=== PATIENT | male | born 1980 | race Caucasian/White ===

== ENCOUNTER 2017-11-02 08:00 | Emergency (ER) | payer SELFPAY ==
[2017-11-02] MEDS ORDERED: IBUPROFEN 800 MG TABLET PO ONE (08:19)
--- NOTE | 2017-11-02 08:42 | ER Document Report ---
ED General - General Chief Complaint: Hand Injury Stated Complaint: RIGHT HAND INJURY Time Seen by Provider: 11/02/17 08:12 TRAVEL OUTSIDE OF THE [place] IN LAST 30 DAYS: No - HPI Patient complains to provider of: Fifth digit right pain Notes: Patient coming in today he was punching a punching bag at home did not wrap his hands when he punched a punching bag having pain at the right fifth digit. Patient denies any other injuries denies any wrist pain or elbow pain. Patient resting comfortably there is swelling to the area. - Related Data Allergies/Adverse Reactions: No Known Allergies Allergy (Verified 11/02/17 08:02) Past Medical History - Social History Smoking Status: Unknown if Ever Smoked Chew tobacco use (# tins/day): No Frequency of alcohol use: Occasional Drug Abuse: None Family History: Reviewed & Not Pertinent Patient has suicidal ideation: No Patient has homicidal ideation: No Renal/ Medical History: Denies: Hx Peritoneal Dialysis - Immunizations Hx Diphtheria, Pertussis, Tetanus Vaccination: Yes Review of Systems - Review of Systems Constitutional: No symptoms reported EENT: No symptoms reported Cardiovascular: No symptoms reported Respiratory: No symptoms reported Gastrointestinal: No symptoms reported Genitourinary: No symptoms reported Male Genitourinary: No symptoms reported Musculoskeletal: Other - Hand pain Skin: No symptoms reported Hematologic/Lymphatic: No symptoms reported Neurological/Psychological: No symptoms reported Physical Exam - Vital signs Vitals: Temp Pulse Resp BP Pulse Ox 98.5 F 64 16 146/99 H 97 11/02/17 08:05 11/02/17 08:05 11/02/17 08:05 11/02/17 08:05 11/02/17 08:05 Interpretation: Normal - General General appearance: Appears well, Alert - HEENT Head: Atraumatic Eyes: Normal Pupils: PERRL - Respiratory Respiratory status: No respiratory distress - Abdominal Inspection: Normal Distension: No distension - Extremities General upper extremity: Tender - Swelling and location of the right fifth digit at the MCP joint., Normal color, Normal ROM, Normal temperature General lower extremity: Normal inspection, Nontender, Normal color, Normal ROM , Normal temperature, Normal weight bearing. No: Madan's sign - Neurological Neuro grossly intact: Yes Cognition: Normal Orientation: AAOx4 [place] Coma Scale Eye Opening: Spontaneous [place] Coma Scale Verbal: Oriented [place] Coma Scale Motor: Obeys Commands [place] Coma Scale Total: 15 Speech: Normal Motor strength normal: LUE, RUE, LLE, RLE Sensory: Normal - Psychological Associated symptoms: Normal affect, Normal mood - Skin Skin Temperature: Warm Skin Moisture: Dry Skin Color: Normal Course - Re-evaluation Re-evalutation: 11/02/17 08:39 Patient has a fracture of the fifth metacarpal patient was placed in a splint. Patient was given follow-up. Patient will be given tramadol for pain also encouraged use Tylenol Motrin. Patient will be discharged home. - Vital Signs Vital signs: Temp Pulse Resp BP Pulse Ox 98.5 F 65 16 146/99 H 97 11/02/17 08:06 11/02/17 08:06 11/02/17 08:06 11/02/17 08:06 11/02/17 08:06 Discharge - Discharge Clinical Impression: Metacarpal bone fracture Qualifiers: Encounter type: initial encounter Metacarpal bone: fifth Fracture type: closed Metacarpal location: neck Fracture alignment: nondisplaced Laterality: right Qualified Code(s): S62.366A - Nondisplaced fracture of neck of fifth metacarpal bone, right hand, initial encounter for closed fracture Condition: Good Disposition: HOME, SELF-CARE Instructions: Fractured Fifth Metacarpal ([facility]) Additional Instructions: Please keep the splint on until you follow-up follow-up with orthopedic physician. Take medication as prescribed. He may also take Tylenol and Motrin for pain control. Elevate the affected hand. Return to ER symptoms worsen. Prescriptions: Tramadol HCl [Ultram 50 mg Tablet] 50 mg PO ASDIR PRN #30 tablet PRN Reason: Forms: Return to Work Referrals: ERROL CASTANEDA DO [ACTIVE STAFF] - Follow up as needed
[2017-11-02 09:12] VITALS: BP 140/96
--- NOTE | 2017-11-02 10:21 | RADIOLOGY REPORT (SQ) ---
EXAM DESCRIPTION: HAND RIGHT 3 VIEWS COMPLETED DATE/TIME: 11/02/2017 8:27 am REASON FOR STUDY: injury/swelling COMPARISON: None. EXAM PARAMETERS: NUMBER OF VIEWS: Three views. TECHNIQUE: AP, lateral and oblique radiographic images acquired of the right hand. LIMITATIONS: None. FINDINGS: MINERALIZATION: Normal. BONES: Acute spiral fracture distal right 5th metacarpal metaphysis without extension into the 5th MC P joint. This is nondisplaced, nonangulated. Deformity of the right pinky finger tuft distal phalanx from old healed crush injury. JOINTS: No effusions. SOFT TISSUES: 5th MCP joint region soft tissue swelling. No foreign body. OTHER: No other significant finding. IMPRESSION: Acute spiral fracture distal right 5th metacarpal metaphysis with overlying soft tissue swelling TECHNICAL DOCUMENTATION: JOB ID: [id number] [employer]- All Rights Reserved
== END 2017-11-02 09:27 | disposition home or self-care (01) ==
LOC: ER 08:00
PROC: 2W3JX1Z Immobilization of Right Finger using Splint (ICD-10-PCS; principal; 2017-11-02)
DX: S62.366A Nondisplaced fracture of neck of fifth metacarpal bone, right hand, initial encounter for closed fracture (principal); M79.644 Pain in right finger(s); W22.8XXA Striking against or struck by other objects, initial encounter
CPT/HCPCS: 99283